=== PATIENT | male | born 1995 | race Caucasian/White ===

== ENCOUNTER → 2017-02-08 | Outpatient (CLI) | payer BC ==
--- NOTE | 2017-02-09 08:01 | XR ---
EXAMINATION TYPE: XR hand complete LT DATE OF EXAM: 02/08/2017 4:57 PM COMPARISON: NONE HISTORY: Pain and laceration TECHNIQUE: Three views are submitted. FINDINGS: The osseous structures are intact. The joint spaces are preserved and there is no acute fracture or dislocation. IMPRESSION: 1. No definite acute fracture or dislocation if symptoms persist, follow-up study in 7 to 10 days wo uld be suggested
== END | disposition home or self-care (01) ==
LOC: RADXRYALE 16:54
PROVIDERS: ATTEND Physician Assistant Medical
DX: M79.642 Pain in left hand (principal)

== ENCOUNTER → 2020-08-30 | Outpatient (CLI) | payer BC ==
--- NOTE | 2020-08-30 14:46 | XR ---
EXAMINATION TYPE: XR tibia fibula 2 views LT, XR ankle complete 3 views LT DATE OF EXAM: 08/30/2020 COMPARISON: NONE HISTORY: 25-year-old male leg pain, posterior calf pain after fall last week FINDINGS: Tibia/fibula: No acute fracture of the more mid to distal tibia or fibula. Ankle: Os trigonum incidentally noted along the posterior hindfoot. Ankle mortise is congruent with preserva tion of the distal tibiofibular overlap. Talar dome is intact. Small delineation to the Achilles tend on. Subtalar joint is aligned. No acute fracture, subluxation, or dislocation. IMPRESSION (tibia/fibula and ankle): No acute osseous abnormality seen.
== END | disposition home or self-care (01) ==
LOC: RADXRYALE 11:44
PROVIDERS: ATTEND Physician Assistant Medical
DX: M79.605 Pain in left leg (principal)